=== PATIENT | male | born 1960 | race African-American/Black ===

== ENCOUNTER 2021-08-02 08:29 | Outpatient (CLI) | payer MEDICARE, SELFPAY ==
--- NOTE | ~2021-08-02 | XR_ITS ---
EXAMINATION: XR knee LT min 4V DATE: 08/02/2021 09:28 INDICATION: Left leg pain. TECHNIQUE: 4 views of left knee including standing views were obtained. COMPARISON: None. FINDINGS: There is lateral subluxation of tibia with respect to distal femur. No fracture. There is s evere tricompartmental osteoarthritis. There is a moderate-sized knee joint effusion. IMPRESSION: 1. Severe left knee osteoarthritis. 2. Moderate-sized knee joint effusion. Reviewed, dictated and finalized at location B. GER PERSONAL
--- NOTE | ~2021-08-02 | XR_ITS ---
EXAMINATION: XR shoulder LT min 2V EXAM DATE: 08/02/2021 09:28 INDICATION: Pain in left leg and left shoulder . TECHNIQUE: The following left shoulder projections obtained: frontal projection with internal rotatio n, frontal projection with external rotation, Grashey, and axillary (4+ views). There is no prior st udy for comparison. FINDINGS: No evidence of left shoulder rotator cuff calcific tendinosis. There is mild to moderate glenohumeral joint primary osteoarthritis, severe acromioclavicular joint osteoarthritis which could be primary or secondary to prior fracture. There are no acute fractures or dislocations identified. There is no subcutaneous gas. The soft tissue is unremarkable. There are no radiopaque foreign annabelle dies. IMPRESSION: Severe left acromioclavicular osteoarthritis. Reviewed, dictated and finalized at location A. [employer]
--- NOTE | ~2021-08-02 | XR_ITS ---
EXAMINATION: XR hip LT min 2V DATE: 08/02/2021 09:27 INDICATION: Left hip pain. TECHNIQUE: 2 views of left hip were obtained. COMPARISON: None. FINDINGS: Bone alignment is normal. No fracture. There is mild left hip osteoarthritis. There are sma ll fragments of heterotopic ossification about the left hip. IMPRESSION: 1. Mild left hip osteoarthritis. Reviewed, dictated and finalized at location B. PACKER
--- NOTE | ~2021-08-02 | XR_ITS ---
EXAMINATION: XR lumbar spine 2-3V DATE: 08/02/2021 09:28 INDICATION: Low back pain. Left leg pain. TECHNIQUE: 3 views of lumbar spine were obtained. COMPARISON: None. FINDINGS: Bone alignment is normal. Vertebral body heights are normal. There is mildly decreased disc height at L4-L5 and moderately decreased disc height at L5-S1. There are endplate osteophytes at all levels. There is moderate to severe facet joint osteoarthritis in lower lumbar spine. IMPRESSION: 1. Moderate lumbar spondylosis. Reviewed, dictated and finalized at location B. [employer]TER
== END 2021-08-02 08:30 ==
DX: M47.896 Other spondylosis, lumbar region (principal); M19.012 Primary osteoarthritis, left shoulder; M17.12 Unilateral primary osteoarthritis, left knee; M25.462 Effusion, left knee; M16.12 Unilateral primary osteoarthritis, left hip
CPT/HCPCS: 72100; 73030; 73502; 73564